=== PATIENT | male | born 1980 | race Caucasian/White ===

== ENCOUNTER 2017-07-05 22:55 | Emergency (ER) | payer OTHER ==
[~2017-07-05] VITALS: Ht 160 cm; Wt 86.2 kg
[2017-07-05 23:02] VITALS: BP 123/78
[2017-07-05] MEDS ORDERED: PENICILLIN V P500 MG PO (23:09)
[2017-07-05] MEDS ORDERED: NORCO 5-325 TA1 EACH PO (23:09)
== END 2017-07-05 23:17 | disposition home or self-care (01) ==
LOC: M.ERS 22:55
DX: K04.7 Periapical abscess without sinus (principal)

== ENCOUNTER 2017-08-01 07:22 | Emergency (ER) | payer OTHER ==
[~2017-08-01] VITALS: Ht 160 cm; Wt 83.0 kg
[~2017-08-01 07:22] MED LIST: NORCO 5-325 TA1 EACH PO; PENICILLIN V P500 MG PO
[2017-08-01] MEDS ORDERED: IBUPROFEN 800800 M1 PO (07:43)
[2017-08-01] MEDS ORDERED: HYDROCODON-ACE1 EAC7 PO (07:46)
[2017-08-01] MEDS ORDERED: PENICILLIN VK500 MG PO (07:46)
[2017-08-01 07:49] VITALS: BP 129/75
== END 2017-08-01 07:49 | disposition home or self-care (01) ==
LOC: M.ERS 07:22
DX: K02.9 Dental caries, unspecified (principal)